=== PATIENT | male | born 1960 | race Caucasian/White ===

== ENCOUNTER 2024-11-21 21:29 | Emergency (ER) | payer BC, SELFPAY ==
[2024-11-21 21:37] VITALS: BP 131/75; PULSE 66; RESP 14; TEMP 36.7; O2SAT 96
--- NOTE | 2024-11-21 23:39 | ED_ITS ---
HPI - Wound/Laceration General: Chief Complaint: Wound/Laceration Stated Complaint: finger lac Time Seen by Provider: 11/21/24 22:33 Source: patient Mode of arrival: ambulatory Limitations: no limitations History of Present Illness: 64yo male presents with laceration of th e right middle finger. Patient reports it got caught in a garage door. States he was cleaning a rental home and had just been cleaning animal excrement. Patient believes his last tetanus was 6 years ago, but would like to have have it updated today. He is able to move his finger with no difficulty. Denies any other injury or concern at this time. Associated symptoms: Denies chills or fever(s) Related Data Home Medications ?Medication ?Instructions ?Recorded ?Confirmed aspirin 81 mg tablet,delayed 81 mg PO .COMPLEX 5 11/19/24 release (Adult Aspirin Regimen) calcium 250 mg-magnesium 40 mg-D3 1 tab PO DAILY 11/1911/19/24 125 unit-zinc [id number]-otoy tablet famotidine 20 mg tablet (Pepcid) 20 mg PO BID 11/19/24 11/19/24 fexofenadine 180 mg tablet 180 mg PO DAILY 11/19/24 (Yanci Allergy) hydrochlorothiazide 25 mg tablet mg PO 11/19/24 lisinopril 20 mg tablet mg PO 11/19/24 11/19/24 metoprolol tartrate 25 mg tablet mg PO 11/19/24 omeprazole 20 mg tablet,delayed 20 mg PO DAILY 5 11/19/24 release Previous Rx's ?Medication ?Instructions ?Recorded cephalexin 500 mg capsule 500 mg PO TID 7 days #21 cap s 11/21/24 Allergies Allergy/AdvReac Type Severity Reaction Status Date / Time ciprofloxacin (From Cipro) Allergy Severe ALGY-Anaphy Verified 11/21/24 21:40 laxis Sulfa (Sulfonamide Allergy Severe Unknown Verified 11/21/24 21:40 Antibiotics) Review of Systems Const: Denies: fever(s) or chills Musc: Reports: other (Laceration right third finger) [facility] ED PFSH: Social History Smoking and tobacco/nicotine status: never used tobacco/nicotine Physical Exam Const: COMMON NORMALS: no acute distress, patient oriented x3 and alert GENERAL APPEARANCE: cooperative ORIENTATION/CONSCIOUSNESS: Yes awake OTHER: Patient is sitting upright in a bedside chair no acute distress. He is able to give history with no difficulty. He is interactive with exam appropriately. No family is at bedside Chest: CHEST: Yes Symmetrical chest wall rise Resp: COMMON NORMALS: normal respiratory effort EFFORT & INSPECTION: Yes able to speak in complete sentences and No respiratory distress Extremity: RIGHT UPPER EXTREMITY: Yes hand & digits (laceration volar aspect at DIP, 3rd digit) Neuro: COMMON NORMALS: patient oriented x3 SENSORIUM/ORIENTATION: Yes alert Skin: TRAUMA: laceration linear (Right third digit) Procedures Laceration Laceration 1: Site: upper extremity (Right third digit) Side (If applicable): right Size (cm): 1.5 Description: linear Depth: simple, single layer Local Anesthetic: lidocaine 1% (Digit block) Amount of anesthesia used (mL): 3 Pre-repair: irrigated extensively Skin layer closed with: nylon Size (cm): 4-0 Number of sutures: 3 Technique: simple, interrupted Course Vital Signs: Vital signs: Vital Signs Temperature 98.0 F 11/21/24 21:37 Pulse Rate 66 11/21/24 21:37 Respiratory Rate 14 11/21/24 21:37 Blood Pressure 131/75 11/21/24 21:37 Pulse Oximetry 96 11/21/24 21:37 MDM - Wound/Laceration Medical Decision Making 64yo male presents with laceration of the right middle finger. Patient reports it got caught in a garage door. States he was cleaning a rental home and had just been cleaning animal excrement. Patient believes his last tetanus was 6 years ago, but would like to have have it updated today. He is able to move his finger with no difficulty. Denies any other injury or concern at this time. Wound was copiously irrigated with normal saline, repaired with sutures. Discussed wound care. Cephalexin prescribed. Tetanus was updated. Recommend suture removal in about a week. Advised to follow-up with primary care in the next several days for wound recheck. Return precautions provided. Patient states understanding and has no further questions or concerns at this time. No radiology studies performed this visit Discharge Plan Discharge Patient Disposition: Home Clinical Impression: Laceration of finger Qualifiers: Encounter type: initial encounter Finger: middle finger Damage to nail status: without damage Foreign body presence: without foreign body Laterality: right Qualified Code(s): S61.212A - Laceration without foreign body of right middle finger without damage to nail, initial encounter Condition: Stable Prescriptions: New cephalexin 500 mg capsule 500 mg PO TID 7 Days Qty: 21 0RF No Action lisinopril 20 mg tablet PO fexofenadine [Yanci Allergy] 180 mg tablet 180 mg PO DAILY aspirin [Adult Aspirin Regimen] 81 mg tablet,delayed release (DR/EC) 81 mg PO .COMPLEX Rx Instructions: 81 mg orally every other day; famotidine [Pepcid] 20 mg tablet 20 mg PO BID hydrochlorothiazide 25 mg tablet PO metoprolol tartrate 25 mg tablet PO omeprazole 20 mg tablet,delayed release (DR/EC) 20 mg PO DAILY calcium [id number] technician copier-chandrika 250 mg-40 mg- 125 unit-3.75mg tablet 1 tab PO DAILY Discharge Orders: Discharge ED (Routine); Ordered 11/21/24 Ordered By: Kimo Mcqueen Referrals: Tano Domingo MD [Primary Care Provider, [facility]] Discharge Diet: Usual diet Discharge Activity: Increase activity as tolerated Patient Instructions: Finger Laceration (ED) Activity Restrictions/Additional Instructions: Cephalexin has been sent to the pharmacy to help prevent infection of the finger Gently wash with soap and water. Do not use alcohol, peroxide, or iodine Try to protect the finger from further injury The sutures would need to be removed in 7 days Follow-up with primary care for wound recheck Return to the emergency department if any further injury, concern for infection, and as needed Print Language: Qatari Coding Level of Care Code ED Vehicle Mechanic for Michael Cervantes
[2024-11-22] MEDS: tetanus-dipt-pertussis 0.5 mL SDV IM (00:01)
[2024-11-22] MEDS: lidocaine 1% 10 ML INJ 4 ML XX (00:08)
== END 2024-11-22 00:09 | disposition home or self-care (01) ==
PROVIDERS: Emergency Provider Nurse Practitioner; PCP Family Medicine
DX: S61.212A Laceration without foreign body of right middle finger without damage to nail, initial encounter (principal); W23.0XXA Caught, crushed, jammed, or pinched between moving objects, initial encounter; Z79.899 Other long term (current) drug therapy; Z88.2 Allergy status to sulfonamides; Z88.8 Allergy status to other drugs, medicaments and biological substances
CPT/HCPCS: 12001; 90471; 90715; 99283; J9999